=== PATIENT | female | born 1940 | race Caucasian/White ===

== ENCOUNTER 2019-10-26 11:03 | Emergency (ER) | payer OTHER ==
[~2019-10-26] VITALS: Ht 162.6 cm; Wt 97.1 kg
[~2019-10-26 11:03] MED LIST: ADULT LOW DOSE81 MG PO; AMLODIPINE-BEN1 EACH PO; CLARITIN10 MG PO; CO Q-10200 MG PO; FISH OIL 1,0001 EAC5 PO; FISHOIL; FLEXERIL PO; FOSAMAX 70 MG T70 M1 PO; GLUCOSAMINE CH PO; MULTIVITAMINS1 EAC7 PO; NORCO 5-325 TA1 EACH PO; PRILOSEC40 MG PO; SERTRALINE HCL100 MG PO; ZOCOR 20 MG TAB20 M1 PO; ZPAK PO
[2019-10-26 11:27] LABS: HEMATOCRIT 43.4 % (37.0-47.0); HEMOGLOBIN 14.9 gm/dL (12.0-15.0); MCH 32.8 pg (26.0-34.0); MCHC 34.4 g/dL (28.0-37.0); MCV 95.5 fL (80.0-100.0); MPV 10.4 fl. (7.2-11.1); RBC 4.55 mil/uL (4.20-5.00); RDW-CV 13.5 % (10.5-14.5); WBC 8.2 thou/uL (4.0-11.0)
[2019-10-26 11:34] LABS: CALCIUM 9.4 mg/dL (8.5-10.1); CREATININE 0.7 mg/dL (0.6-1.3); POTASSIUM 3.9 mmol/L (3.5-5.1)
[2019-10-26 11:35] LABS: APTT 27.3 Seconds (25.0-31.3); INR 1.1; PROTIME 11.4 Seconds (9.20-11.50)
[2019-10-26 11:38] LABS: ALBUMIN 4.1 g/dL (3.4-5.0); TOTAL BILIRUBIN 0.7 mg/dL (<0.1-1.0); TOTAL PROTEIN 7.7 g/dL (6.4-8.2)
[2019-10-26] MEDS ORDERED: LIPITOR10 MG PO (11:41)
[2019-10-26] MEDS ORDERED: CALCIUM500 MG PO (11:42)
[2019-10-26] MEDS ORDERED: SUPER THERAVIT1 EACH PO (11:42)
[2019-10-26 13:25] VITALS: BP 142/75
--- NOTE | 2019-10-27 09:01 | EKG ---
[place] [address] ELECTROCARDIOGRAM REPORT Name: LESLYE FOLEY Room: [facility]#: [id number] Admission: 10/26/19 Attend Phys: Discharge: 10/26/19 Date of : 44 Date of Service: 10/26/19 1154 Report #: [id number] THIS REPORT FOR: //name// [facility] ED Test Date: 2019-10-26 Test Time: 11:54:10 Pat Name: LESLYE FOLEY Department: Room: Gender: [employer] Technician: Lexie : 1940 Requested By: Manolo Lazaro Order Number: [id number] MD: Tremaine Giraldo Measurements Intervals [place] Rate: 86 P: 53 OR: 231 QRS: -44 QRSD: 94 T: 25 QT: 376 QTc: 450 Interpretive Statements Sinus rhythm Prolonged OR interval Inferior infarct, old Anteroseptal infarct, old Lateral leads are also involved Compared to ECG 01/31/2013 07:52:04 First degree AV block now present Electronically Signed On 10-27-2019 9:00:45 CDT by Tremaine Giraldo [email or web address] <ELECTRONICALLY SIGNED> By: Tremaine Giraldo MD, [facility] 10/27/19 0900 1154 1154 Tremaine Giraldo MD, [facility] /EPI
== END 2019-10-26 13:25 | disposition short-term general hospital (02) ==
LOC: M.ERS 11:03
PROVIDERS: Emergency Medicine
DX: I62.9 Nontraumatic intracranial hemorrhage, unspecified (principal); F32.9 Major depressive disorder, single episode, unspecified; I10 Essential (primary) hypertension; Z88.5 Allergy status to narcotic agent; Z88.2 Allergy status to sulfonamides; Z79.899 Other long term (current) drug therapy; Z79.82 Long term (current) use of aspirin; Z90.710 Acquired absence of both cervix and uterus